=== PATIENT | female | born 1965 | race Caucasian/White ===

== ENCOUNTER 2018-03-05 13:37 | Emergency (ER) | payer BC ==
[2018-03-05] MEDS ORDERED: DIAZEPAM 5 MG/ML 2 ML INJ IVP STA (13:53)
[2018-03-05] MEDS ORDERED: MECLIZINE 25 MG TAB PO STA (13:53)
--- NOTE | 2018-03-05 13:58 | ED ---
General Adult HPI - General Chief complaint: Dizziness Stated complaint: dizziness, sent by [facility] Time Seen by Provider: 03/05/18 13:40 Source: patient, RN notes reviewed Mode of arrival: wheelchair Limitations: no limitations - History of Present Illness Initial comments: This is a 52-year-old female presents emergency department stating that she has become dizzy after doing hand stands in the pool. Patient states anytime she moves her head now she feels off balance and very nauseated. Patient states she 's never had this before. Patient denies any headache patient denies any injury or head trauma. Patient denies any chest pain or palpitations. Patient denies any difficulty breathing shortness of breath. Patient states she is noted to closing her eye seems to make the symptoms better. Patient denies any ringing in the ear or new hearing loss. Patient states she normally has a slow heart rate but she is not homicidal. Patient denies any abdominal pain. Patient denies any recent fever chills or cough. - Related Data Home Medications Medication Instructions Recorded Confirmed Estrogens, Conjugated Cream 1 applicator VAGINAL DAILY 03/05/18 03/05/18 [Premarin Cream] Fluticasone Nasal [place] [Flonase 1 spray EA NOSTRIL DAILY 03/05/18 03/05/18 Nasal [place]] Levothyroxine Sodium [Synthroid] 100 mcg PO DAILY 03/05/18 03/05/18 Multivitamins, Thera [Multivitamin 1 tab PO DAILY 03/05/18 03/05/18 (formulary)] Zolpidem Tartrate [Ambien] 5 mg PO HS PRN 03/05/18 03/05/18 Previous Rx's Medication Instructions Recorded Meclizine [Antivert] 25 mg PO TID #20 tab 03/05/18 Allergies Allergy/AdvReac Type Severity Reaction Status Date / Time Penicillins AdvReac Anaphylaxis Verified 03/05/18 14:02 Sulfa (Sulfonamide AdvReac Anaphylaxis Verified 03/05/18 14:02 Antibiotics) Review of Systems ROS Statement: Those systems with pertinent positive or pertinent negative responses have been documented in the HPI. ROS Other: All systems not noted in ROS Statement are negative. 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 Patient is nontoxic and well- hydrated and is in mild distress. ENT: Neck is soft and supple. No significant lymphadenopathy is noted. Oropharynx is clear. Moist mucous membranes. Neck has full range of motion without eliciting any pain. EYES: The sclera were anicteric and conjunctiva were pink and moist. Extraocular movements were intact and pupils were equal round and reactive to light. Eyelids were unremarkable. PULMONARY: Unlabored respirations. Good breath sounds bilaterally. No audible rales rhonchi or wheezing was noted. CARDIOVASCULAR: There is a regular rate and rhythm without any murmurs gallops or rubs. ABDOMEN: Soft and nontender with normal bowel sounds. SKIN: Skin is clear with no lesions or rashes and otherwise unremarkable. NEUROLOGIC: Patient is alert and oriented x3. Cranial nerves II through XII are grossly intact. Motor and sensory are also intact. Normal speech, volume and content. Symmetrical smile. Cerebellar testing finger to nose normal bilaterally MUSCULOSKELETAL: Normal extremities with adequate strength and full range of motion. LYMPHATICS: No significant lymphadenopathy is noted PSYCHIATRIC: Normal psychiatric evaluation. Limitations: no limitations Course Vital Signs 03/05/18 13:40 Temperature 98.4 F Pulse Rate 50 L Respiratory 20 Rate Blood Pressure 153/81 O2 Sat by Pulse 99 Oximetry Medical Decision Making - Medical Decision Making Chest x-ray shows no acute abnormality CT shows no acute abnormality. Patient got Antivert and Valium in the hospital and symptoms were improved. - Lab Data Result diagrams: 03/05/18 14:10 03/05/18 14:10 Lab Results 03/05/18 03/05/18 03/05/18 Range/Units 14:10 14:10 14:10 WBC 6.5 (3.8-10.6) k/uL RBC 3.85 (3.80-5.40) m/uL Hgb 12.5 (11.4-16.0) gm/dL Hct 37.5 (34.0-46.0) % MCV 97.6 (80.0-100.0) fL MCH 32.5 (25.0-35.0) pg MCHC 33.3 (31.0-37.0) g/dL RDW 13.9 (11.5-15.5) % Plt Count 231 (150-450) k/uL Neutrophils % 58 % Lymphocytes % 34 % Monocytes % 4 % Eosinophils % 2 % Basophils % 0 % Neutrophils # 3.8 (1.3-7.7) k/uL Lymphocytes # 2.2 (1.0-4.8) k/uL Monocytes # 0.3 (0-1.0) k/uL Eosinophils # 0.2 (0-0.7) k/uL Basophils # 0.0 (0-0.2) k/uL PT (9.0-12.0) sec INR (<1.2) APTT (22.0-30.0) sec Sodium 139 (137-145) mmol/L Potassium 4.1 (3.5-5.1) mmol/L Chloride 104 (98-107) mmol/L Carbon Dioxide 26 (22-30) mmol/L Anion Gap 9 mmol/L BUN 12 (7-17) mg/dL Creatinine 0.58 (0.52-1.04) mg/dL Est GFR (CKD-EPI)AfAm >90 (>60 ml/min/1.73 sqM) Est GFR (CKD-EPI)NonAf >90 (>60 ml/min/1.73 sqM) Glucose 98 (74-99) mg/dL Calcium 10.3 H (8.4-10.2) mg/dL Magnesium 1.7 (1.6-2.3) mg/dL Total Bilirubin 0.3 (0.2-1.3) mg/dL AST 27 (14-36) U/L ALT 30 (9-52) U/L Alkaline Phosphatase 65 (38-126) U/L Total Creatine Kinase 64 (30-135) U/L CK-MB (CK-2) 0.6 (0.0-2.4) ng/mL CK-MB (CK-2) Rel Index 0.9 Troponin I <0.012 (0.000-0.034) ng/mL Total Protein 7.1 (6.3-8.2) g/dL Albumin 4.3 (3.5-5.0) g/dL 03/05/18 Range/Units 14:10 WBC (3.8-10.6) k/uL RBC (3.80-5.40) m/uL Hgb (11.4-16.0) gm/dL Hct (34.0-46.0) % MCV (80.0-100.0) fL MCH (25.0-35.0) pg MCHC (31.0-37.0) g/dL RDW (11.5-15.5) % Plt Count (150-450) k/uL Neutrophils % % Lymphocytes % % Monocytes % % Eosinophils % % Basophils % % Neutrophils # (1.3-7.7) k/uL Lymphocytes # (1.0-4.8) k/uL Monocytes # (0-1.0) k/uL Eosinophils # (0-0.7) k/uL Basophils # (0-0.2) k/uL PT 10.1 (9.0-12.0) sec INR 1.0 (<1.2) APTT 22.2 (22.0-30.0) sec Sodium (137-145) mmol/L Potassium (3.5-5.1) mmol/L Chloride (98-107) mmol/L Carbon Dioxide (22-30) mmol/L Anion Gap mmol/L BUN (7-17) mg/dL Creatinine (0.52-1.04) mg/dL Est GFR (CKD-EPI)AfAm (>60 ml/min/1.73 sqM) Est GFR (CKD-EPI)NonAf (>60 ml/min/1.73 sqM) Glucose (74-99) mg/dL Calcium (8.4-10.2) mg/dL Magnesium (1.6-2.3) mg/dL Total Bilirubin (0.2-1.3) mg/dL AST (14-36) U/L ALT (9-52) U/L Alkaline Phosphatase (38-126) U/L Total Creatine Kinase (30-135) U/L CK-MB (CK-2) (0.0-2.4) ng/mL CK-MB (CK-2) Rel Index Troponin I (0.000-0.034) ng/mL Total Protein (6.3-8.2) g/dL Albumin (3.5-5.0) g/dL Disposition Clinical Impression: Vertigo Disposition: HOME SELF-CARE Condition: Good Instructions: Vertigo (ED) Prescriptions: Meclizine [Antivert] 25 mg PO TID #20 tab Is patient prescribed a controlled substance at d/c from ED?: No Referrals: Nonstaff,Physician [Primary Care Provider] - 1-2 days Time of Disposition: 15:10
[2018-03-05] MEDS ORDERED: ONDANSETRON 4 MG/2 ML VIAL IVP STA (14:00)
[2018-03-05 14:24] LABS: Basophils % (A) 0 %; Eosinophils # (A) 0.2 k/uL (0-0.7); Eosinophils % (A) 2 %; HCT 37.5 % (34.0-46.0); HGB 12.5 gm/dL (11.4-16.0); Lymphocytes # (A) 2.2 k/uL (1.0-4.8); Lymphocytes % (A) 34 %; MCH 32.5 pg (25.0-35.0); MCHC 33.3 g/dL (31.0-37.0); MCV 97.6 fL (80.0-100.0); Monocytes # (A) 0.3 k/uL (0-1.0); Monocytes % (A) 4 %; Neutrophils # (A) 3.8 k/uL (1.3-7.7); Neutrophils % (A) 58 %; Platelet Count 231 k/uL (150-450); RBC 3.85 m/uL (3.80-5.40); RDW 13.9 % (11.5-15.5); WBC 6.5 k/uL (3.8-10.6)
[2018-03-05 14:32] LABS: ALT 30 U/L (9-52); AST 27 U/L (14-36); Albumin 4.3 g/dL (3.5-5.0); Alkaline Phosphatase 65 U/L (38-126); Anion Gap 9 mmol/L; Blood Urea Nitrogen 12 mg/dL (7-17); Calcium 10.3 mg/dL (8.4-10.2); Carbon Dioxide 26 mmol/L (22-30); Chloride 104 mmol/L (98-107); Glucose 98 mg/dL (74-99); Magnesium 1.7 mg/dL (1.6-2.3); Potassium 4.1 mmol/L (3.5-5.1); Sodium 139 mmol/L (137-145); Total Bilirubin 0.3 mg/dL (0.2-1.3); Total Protein 7.1 g/dL (6.3-8.2)
[2018-03-05 14:36] LABS: Partial Thromboplastin Time 22.2 sec (22.0-30.0); Prothrombin Time 10.1 sec (9.0-12.0)
[2018-03-05 14:41] LABS: Creatine Kinase 64 U/L (30-135)
[2018-03-05 14:54] LABS: Creatine Kinase MB 0.6 ng/mL (0.0-2.4); Troponin I <0.012 ng/mL (0.000-0.034)
--- NOTE | 2018-03-05 15:04 | CT ---
EXAMINATION TYPE: CT brain wo con DATE OF EXAM: 03/05/2018 COMPARISON: NONE HISTORY: Dizziness x [address] DLP: 1056.7 mGycm. Automated Exposure Control for Dose Reduction was Utilized. TECHNIQUE: CT scan of the head is performed without contrast. FINDINGS: There is no acute intracranial hemorrhage, mass effect, or midline shift identified. No suspicious extra-axial fluid collection. The ventricles and sulci are within normal limits in size. The globes are intact and the visualized sinuses are clear. Incidentally noted Thorn[place]dt cyst or sec retions within the posterior nasopharynx are seen. Calcifications along the anterior left middle cran ial fossa may represent hyperostosis or calcified en plaque extra-axial lesion such as a meningioma. This could be further evaluated with enhanced MR. IMPRESSION: 1. No acute intracranial hemorrhage, mass effect, or midline shift is seen. 2. Possible en plaque left middle cranial fossa extra-axial meningioma that could be further evaluate d with enhanced MRI. No regional mass effect.
[2018-03-05 15:29] VITALS: BP 132/79; PULSE 48; RESP 16; TEMP 98
--- NOTE | 2018-03-05 15:29 | XR ---
EXAMINATION TYPE: XR chest 2V DATE OF EXAM: 03/05/2018 COMPARISON: NONE HISTORY: Syncopal episode. TECHNIQUE: Frontal and lateral views of the chest are obtained. FINDINGS: There is no focal air space opacity, pleural effusion, or pneumothorax seen. The cardiac silhouette size is within normal limits. The osseous structures are intact. Mild multilevel degener ative change of the thoracic spine is noted. Moderate acromioclavicular arthropathy is also seen. IMPRESSION: No acute cardiopulmonary process.
== END 2018-03-05 15:29 | disposition home or self-care (01) ==
LOC: EC 13:37
DX: R42 Dizziness and giddiness (principal); R11.0 Nausea; Z94.81 Bone marrow transplant status; Z79.51 Long term (current) use of inhaled steroids; Z79.899 Other long term (current) drug therapy; Z88.0 Allergy status to penicillin; Z88.2 Allergy status to sulfonamides
CPT/HCPCS: 36415; 93005; 80053; 82550; 82553; 83735; 84484; 85025; 85610; 85730; 71046; 70450; 99284; 96374; 96375; J3360; J2405